=== PATIENT | female | born 1945 | race Caucasian/White ===

== ENCOUNTER 2017-04-26 12:35 | Inpatient (IN) | payer OTHER ==
[2017-04-26] VITALS (12 sets, daily range): BP systolic 62–104; BP diastolic 30–77
[~2017-04-26] VITALS: Ht 167.6 cm; Wt 73.0 kg
--- NOTE | 2017-04-26 12:35 | NUR ---
received report from fire with bp 80/60 and re taken on thier own monitor 76/45.patient awake alert oriented. no distress. no iv access started in the field, as per fire, hard to start because they were moving. bp in er 62/30 on triage. started iv access and fluids while in [place] waiting for a bed. ermd made aware of patients condition.
[2017-04-26] MEDS ORDERED: NACL 0.9% 2,000 ML IV ONE (13:00)
--- NOTE | 2017-04-26 13:00 | NUR ---
laurad assessed patient in bed #11. continue to monitor
--- NOTE | 2017-04-26 13:00 | NUR ---
PT TAKEN TO BED 11 AT THIS TIME.
--- NOTE | 2017-04-26 13:05 | NUR ---
PT sent from a clinic. as per fire, bp 80/60 and re taken in er on thier monitor 76/45.patient awake,alert,oriented. no iv line inserted in the field.hx: seizure,htn. bs field 179 SKIN IS PINK/WARM/DRY; AAOX4 WITH EVEN AND STEADY GAIT; LUNGS CLEAR BL; HR EVEN AND REGULAR; PT DENIES ANY FEVER, CP, SOB, OR COUGH AT THIS TIME; PATIENT STATES PAIN OF 0/10 AT THIS TIME; VSS; PATIENT POSITIONED FOR COMFORT; HOB ELEVATED; BEDRAILS UP X2; BED DOWN. ER MD MADE AWARE OF PT STATUS.
[2017-04-26 13:33] LABS: BASOPHILS % (AUTO) 0.4 % (0.0-2.0); EOSINOPHILS # (AUTO) 0.1 K/uL (0-0.4); EOSINOPHILS % (AUTO) 0.6 % (0.0-4.0); HEMATOCRIT 28.3 % (36-48); HEMOGLOBIN 9.3 g/dL (12.0-16.0); LYMPHOCYTES # (AUTO) 0.4 K/uL (2.5-16.5); LYMPHOCYTES % (AUTO) 4.1 % (20.5-51.1); MEAN CORPUSCULAR HEMOGLOBIN 25 pg (27-31); MEAN CORPUSCULAR HGB CONC 33 g/dL (33-37); MEAN CORPUSCULAR VOLUME 75 fL (80-94); MONOCYTES # (AUTO) 0.5 K/uL (0.8-1.0); MONOCYTES % (AUTO) 4.9 % (1.7-9.3); NEUTROPHILS # (AUTO) 9.2 K/uL (1.8-7.7); PLATELET COUNT (AUTO) 419 K/uL (140-450); RED CELL DISTRIBUTION WIDTH 17.5 % (11.6-13.7); WHITE BLOOD COUNT (AUTO) 10.2 K/uL (4.8-10.8)
[2017-04-26] MEDS ORDERED: QUEPKT PO (13:50)
[2017-04-26] MEDS ORDERED: CARB200T1 PO (13:50)
[2017-04-26] MEDS ORDERED: LISI10TA11 PO (13:50)
[2017-04-26] MEDS ORDERED: WARF-18 PO (13:50)
[2017-04-26] MEDS ORDERED: ATEN50TA8 PO (13:50)
[2017-04-26] MEDS ORDERED: ORE25 PO (13:50)
[2017-04-26 13:52] LABS: PROTHROMBIN TIME 10.9 secs (10.8-13.4)
--- NOTE | 2017-04-26 14:15 | NUR ---
PT TAKEN OFF THE UNIT FOR CT VIA GURNEY BY MACHINE ZIPPER TRIMMER ARISTEO
[2017-04-26 14:20] LABS: ALBUMIN 2.9 g/dL (3.4-5.0); ANION GAP 27.4 (8-16); CARBON DIOXIDE 14.7 mmol/L (21-32); POTASSIUM 4.1 mmol/L (3.5-5.1); TOTAL BILIRUBIN 0.5 mg/dL (0.0-1.0)
[2017-04-26 14:23] LABS: CREATININE 6.3 mg/dL (0.6-1.3)
[2017-04-26] MEDS ORDERED: CALCIUM CHLORIDE 10% 1,000 MG in NACL 0.9% 100 ML IV ONE (14:40)
--- NOTE | 2017-04-26 15:00 | NUR ---
NOTIFIED PT BP 86/46 AT THIS TIME. PT AWAKE, ALERT, AND ORIENTED.
[2017-04-26] MEDS ORDERED: DOPamine 400 MG/D5W PREMIX 250 ML IV ONE ×2 (15:05→23:39)
--- NOTE | 2017-04-26 15:05 | NUR ---
STATRTED PT ON DOPAMINE DRIP AT 5 MCG/KG/MIN.
--- NOTE | 2017-04-26 15:28 | NUR ---
BP85/51, INCREASED DOPAMING DRIP TO 9.99 MCG/KG/MIN
[2017-04-26] MEDS ORDERED: ONDANSETRON 4 MG/2 ML VIAL IM/IVP PRN (15:35)
[2017-04-26] MEDS ORDERED: DOCUSATE SODIUM 100 MG GELCAP PO PRN (15:35)
--- NOTE | 2017-04-26 15:45 | NUR ---
BP 80/46, INCREASED DOPAMINE TO 14.99 MCG/KG/MIN
[2017-04-26] MEDS ORDERED: CALCIUM GLUCONATE 10% 1000 MG/10 ML VIAL IVP ONE (16:00)
[2017-04-26] MEDS ORDERED: CALCIUM GLUCONATE 10% 1,000 MG in NACL 0.9% 100 ML IV SCH (16:00)
--- NOTE | 2017-04-26 16:00 | NUR ---
BP 100/65,HR 72, O2 SAT 96%
--- NOTE | 2017-04-26 16:11 | NUR ---
BP 102/53. HR 78, O2 SAT 100%. PT STATED SHE FEELS BETTER.
[2017-04-26] MEDS: NACL 0.9% 1,000 ML IV SCH ×3 (16:40→19:30)
--- NOTE | 2017-04-26 17:10 | NUR ---
PER CLIENT RELATIONSHIP CONSULTANT FELIZ,HOLD ADM. TO ICU SECONDARY TO EMERGENCY SITUATION IN L&D,VAG. BLEED/LOW BP
--- NOTE | 2017-04-26 17:36 | NUR ---
CHECKED BP 88/47, NOTIFIED PT ON DOPAMINE 15 MCG/KG/MIN. PER , GIVE PT 0.9 NS 1000 MLS, WILL CARRY OUT
--- NOTE | 2017-04-26 17:47 | NUR ---
ADMISSION TO ICU STILL ON HOLD SECONDARY TO EMERGENCY IN ICU PER HYDROGEN PLANT OPERATOR FLEIZ.
--- NOTE | 2017-04-26 17:51 | NUR ---
PT BP 121/72, HR 76. O2 SAT 100%. NOT AT BEDSIDE AT THIS TIME. PER PT, PT WENT HOME , WILL COME BACK.
[2017-04-26] MEDS ORDERED: CALCIUM GLUCONATE 10% 1,000 MG in NACL 0.9% 50 ML IV ONE (18:00)
--- NOTE | 2017-04-26 18:00 | NUR ---
BP 109/54, HR 74, O2 SAT 100%. RR 16. PT STATED SHE FEELS FINE.
[2017-04-26] MEDS ORDERED: SODIUM BICARBONATE 8.4% PFS 50 MEQ/50 ML SYR IVP SCH (18:05)
--- NOTE | 2017-04-26 18:45 | NUR ---
IN TO SEE PT, UPDATED PT'S CONDITION.
--- NOTE | 2017-04-26 19:16 | NUR ---
RECEIVED PT TRANSFERRED FROM ER VIA [facility], OBTAINED REPORT FORM RAJI CEJA AT BEDSIDE, PT IS AAOX4, ABLE TO FOLLOW COMMANDS AND MAKE NEEDS KNOWN. DENIES PAIN, VSS. NO S/S OF SOB/DISTRESS, CLEAR LUNG SOUNDS, ON O2 AT 2L VIA NC, DENIES CHEST PAIN, SR ON INTEGRATION MANAGER, SOFT ABDOMEN WITH HYPOACTIVE BOWEL SOUNDS, ANGEL CATHETER IN PLACE WITH CLEAR YELLOW URINE NOTED, ABLE TO MOVE ALL EXTREMITIES, GENERALIZED WEAKNESS NOTED. PERIPHERAL LINE TO RIGHT FOREARM 20GA, RUNNING NS AT 150ML/HR AND DOPAMINE DRIP AT 15MCG/MIN. SKIN IN INTACT, WARM AND DRY TO TOUCH. EXPLAINED POC TO PT, PT VERBALIZED UNDERSTANDING, HOB ELEVATED 30 DEGREES, SAFETY MEASURE AND SEIZURE PRECAUTION IN PLACE, WILL CONTINUE TO MONITOR.
[2017-04-26] MEDS: CALCIUM CARB/VIT-D 500 MG/200 IU 1 TAB PO SCH (20:00)
--- NOTE | 2017-04-26 20:00 | NUR ---
PT C/O SHARP CHEST PAIN AND BACK PAIN WHEN SLOWLY ADMINISTER SODIUM BICARBONATE IV PUSH, STOPPED ADMINISTER THE MEDICATION IMMEDIATELY, REPORTED TO DR. COLES, WILL GIVE NEW ORDERS.
[2017-04-26 20:11] LABS: FREE T4 (FREE THYROXINE) 0.81 ng/dL (0.76-1.46); MAGNESIUM 2.4 mg/dL (1.8-2.4); PHOSPHORUS 7.1 mg/dL (2.5-4.9); THYROID STIMULATING HORMONE 0.58 uIU/mL (0.34-3.74)
[2017-04-26] MEDS: SODIUM BICARBONATE 8.4% 50 MEQ in NACL 0.9% 1,000 ML IV SCH (20:55)
[2017-04-26 20:58] LABS: ANION GAP 27.6 (8-16); CARBON DIOXIDE 14.6 mmol/L (21-32); POTASSIUM 4.2 mmol/L (3.5-5.1)
[2017-04-26 21:00] LABS: CREATININE 5.2 mg/dL (0.6-1.3)
[2017-04-26 21:17] LABS: APPEARANCE,URINE SL CLOUDY (CLEAR); BILIRUBIN,URINE NEGATIVE (NEGATIVE); BLOOD, URINE NEGATIVE (NEGATIVE); COLOR,URINE YELLOW (YELLOW); LEUKOCYTE ESTERASE ,URINE 1+ (NEGATIVE); NITRITE, URINE NEGATIVE (NEGATIVE); PH,URINE 5.5 (5.0-9.0); UGLUCOSE NEGATIVE (NEGATIVE)
[2017-04-26] MEDS: carBAMazepine 200 MG TAB PO SCH (21:22)
[2017-04-26 21:30] LABS: RBC,URINE 3-10 (FEW) /HPF (0-5); WBC,URINE 16-25 (MOD) /HPF (0-5)
[2017-04-26] MEDS: ZOLPIDEM 5 MG TAB PO PRN (21:42)
[2017-04-27] VITALS (96 sets, daily range): BP systolic 80–146; BP diastolic 39–91
--- NOTE | 2017-04-27 | NUR ---
NO CHANGE OF CONDITION AT THIS TIME, VSS
[2017-04-27] MEDS: DOPamine 400 MG/D5W PREMIX 250 ML IV SCH ×3 (00:14→19:10)
[2017-04-27] MEDS: NACL 0.9% 1,000 ML IV SCH ×4 (00:15→19:58)
--- NOTE | 2017-04-27 02:00 | NUR ---
PT IS ASLEEP IN BED, NO S/S OF DISTRESS, STILL ON DOPAMINE DRIP, VSS.
--- NOTE | 2017-04-27 04:00 | NUR ---
AM CARE REFUSED, STATED," TOO COLD, WILL DO LATER." ANGEL CATHETER CARE PROVIDED.
--- NOTE | 2017-04-27 06:00 | NUR ---
PT IS RESTING IN BED, NO CHANGE OF CONDITION AT THIS TIME, VSS.
[2017-04-27 06:14] LABS: T4 (THYROXINE) 5.3 ug/dL (4.5-12.0)
--- NOTE | 2017-04-27 06:34 | NUR ---
PATIENT HAS BEEN SCREENED AND CATEGORIZED HIGH NUTRITION RISK. PATIENT WILL BE SEEN WITHIN 1-2 DAYS OF ADMISSION. 04/27/17-04/28/17 MIK GARCIA MS, RDN
[2017-04-27 06:37] LABS: ANION GAP 20.8 (8-16); CARBON DIOXIDE 15.2 mmol/L (21-32); CREATININE 2.4 mg/dL (0.6-1.3)
[2017-04-27 06:43] LABS: BASOPHILS % (AUTO) 0.4 % (0.0-2.0); EOSINOPHILS # (AUTO) 0.1 K/uL (0-0.4); EOSINOPHILS % (AUTO) 0.6 % (0.0-4.0); HEMATOCRIT 24.8 % (36-48); HEMOGLOBIN 7.9 g/dL (12.0-16.0); LYMPHOCYTES # (AUTO) 0.5 K/uL (2.5-16.5); MEAN CORPUSCULAR HEMOGLOBIN 24 pg (27-31); MEAN CORPUSCULAR HGB CONC 32 g/dL (33-37); MEAN CORPUSCULAR VOLUME 74 fL (80-94); MONOCYTES # (AUTO) 0.9 K/uL (0.8-1.0); MONOCYTES % (AUTO) 10.5 % (1.7-9.3); NEUTROPHILS # (AUTO) 7.5 K/uL (1.8-7.7); NEUTROPHILS % (AUTO) 83.5 % (42.2-75.2); PLATELET COUNT (AUTO) 449 K/uL (140-450); RED BLOOD CELL COUNT(AUTO) 3.33 MIL/uL (4.20-5.40); RED CELL DISTRIBUTION WIDTH 17.3 % (11.6-13.7)
[2017-04-27] MEDS ORDERED: cefTRIAXone 1,000 MG VIAL ONE (06:43)
--- NOTE | 2017-04-27 07:20 | NUR ---
PT RESTING IN BED COMFORTABLY. A/OX4. IN ROOM AIR 98%. SKIN DRY AND WARM TO TOUCH. NO ACUTE DISTRESS. LUNGS SOUND DIMINISHED ON AUSCULTATION. RIGHT FOREARM IV SITE LEAKING, DCD LEAKING IV LINE. STARTED NEW IV LINE TO LEFT WRIST 20 G. RIGHT FOREARM PERIPHERAL LINE 22G. DOPAMIN RUNNING AT 15 MCG/KG/MIN, SODIUM BICARB RUNNING AT 50 ML/HR. 0.9% NS RUNNING AT 150 ML/HR. ABDOMEN SOFT, ROUND AND NON TENDER. ACTIVE BOWEL SOUND. ANGEL'S CATH IN PLACE. CALL LIGHT WITHIN REACH, BED IN LOW POSITION, LOCKED. WILL CONTINUE TO MONITOR.
[2017-04-27] MEDS: ACETAMINOPHEN 325 MG TAB PO PRN ×2 (07:56→20:00)
--- NOTE | 2017-04-27 07:56 | NUR ---
FEVER OF 100.4 DEGREE F. TAB TYLENOL ADMINISTERED PER ORDER. PT ON CONTINUOUS MONITORING.
--- NOTE | 2017-04-27 08:00 | NUR ---
PT VOMIT OUT TAKEN PILLS ( TYLENOL). COOLING MEASURES APPLIED FOR FEVER MANAGEMENT, EXTRA CLOTHES REMOVED. ON CONTINUOUS MONITORING.
[2017-04-27] MEDS ORDERED: ONDANSETRON 4 MG/2 ML VIAL IVP PRN (08:15)
--- NOTE | 2017-04-27 08:48 | NUR ---
PT RESTING IN BED. TEMPERATURE 100.2. COLD COMPRESS PROVIDING CONTINUOUSLY. NO C/O NAUSEA, NO VOMITING. WILL CONTINUE TO MONITOR.
[2017-04-27] MEDS: CALCIUM CARB/VIT-D 500 MG/200 IU 1 TAB PO SCH ×3 (09:00→17:10)
[2017-04-27] MEDS: carBAMazepine 200 MG TAB PO SCH ×2 (09:02→20:00)
--- NOTE | 2017-04-27 09:15 | NUR ---
DR. LUNA IN TO SEE PT. MADE AWARE ABOUT ELEVATED TEMPERATURE. NO NEW ORDER. WILL FOLLOW UP ON ORDER. PT REFUSED COLD COMPRESS.
--- NOTE | 2017-04-27 09:48 | NUR ---
DR. PETERSEN MADE AWARE ABOUT LOW POTASSIUM 3.0. WILL FOLLOW UP ON ORDER.
[2017-04-27] MEDS ORDERED: POTASSIUM CHLORIDE 10 MEQ TABER PO SCH ×2 (09:51→17:00)
--- NOTE | 2017-04-27 10:50 | NUR ---
PT RESTING IN BED COMFORTABLY. NO CHHANGE IN LOC. AT BEDSIDE. WILL CONTINUE TO MONITOR.
--- NOTE | 2017-04-27 11:06 | NUR ---
04/27/17 RD INITIAL ASSESSMENT COMPLETED PLEASE REFER TO NUTRITION ASSESSMENT UNDER CARE ACTIVITY FOR ESTIMATED NUTRITIONAL NEEDS. RD RECOMMENDATIONS: 1. CONTINUE ON REGULAR DIET TOLERATED. 2. CONSULT RDN PRN. 3. RD WILL F/U 5-7 DAYS; LOW RISK. MIK GARCIA MS, RDN
[2017-04-27] MEDS: SODIUM BICARBONATE 8.4% 50 MEQ in NACL 0.9% 1,000 ML IV SCH (12:10)
--- NOTE | 2017-04-27 12:12 | NUR ---
PT RESTING IN BED COMFORTABLY. NO CHANGE IN LOC WILL CONTINUE TO MONITOR.
[2017-04-27 12:59] LABS: ANION GAP 18.4 (8-16); CARBON DIOXIDE 16.8 mmol/L (21-32); CREATININE 1.6 mg/dL (0.6-1.3); POTASSIUM 3.2 mmol/L (3.5-5.1)
--- NOTE | 2017-04-27 13:18 | NUR ---
DR. CHANEY IN TO SEE PT. WILL FOLLOW UP ON ORDER.
--- NOTE | 2017-04-27 13:54 | NUR ---
DR. COOK AND DR. PAIGE IN TO SEE PT. WILL FOLLOW UP ON ORDER.
--- NOTE | 2017-04-27 14:24 | NUR ---
PT SLEEPING IN BED COMFORTABLY. SR ON MONITOR. NO CHANGE IN LOC. WILL CONTINUE TO MONITOR.
[2017-04-27] MEDS ORDERED: FERRIC GLUCONATE 125 MG in NACL 0.9% 100 ML IV SCH ×2 (16:50→18:00)
--- NOTE | 2017-04-27 18:02 | NUR ---
PT RESTING IN BED COMFORTABLY. NO CHANGE IN LOC. NO ACUTE DISTRESS. AFEBRILE. ON CONTINUOUS DOPAMINE DRIP. WILL CONTINUE TO MONITOR.
[2017-04-27] MEDS ORDERED: CALCIUM ACETATE 667 MG TAB PO ONE (18:05)
--- NOTE | 2017-04-27 19:25 | NUR ---
REPORT GIVEN TO NOC SHIFT RN FOR CONTINUE OF CARE. PT ON STABLE CONDITION.
--- NOTE | 2017-04-27 19:26 | NUR ---
RECEIVED REPORT FORM AM NURSE AT BEDSIDE, PT IS AAOX4, ABLE TO FOLLOW COMMANDS AND MAKE NEEDS KNOWN. C/O HEADACHE 07/06, VSS. NO S/S OF SOB/DISTRESS, CLEAR LUNG SOUNDS, ON RA, DENIES CHEST PAIN, SR ON ADDICTIONS THERAPIST, SOFT ABDOMEN WITH HYPOACTIVE BOWEL SOUNDS, ANGEL CATHETER IN PLACE WITH CLEAR YELLOW URINE NOTED, ABLE TO MOVE ALL EXTREMITIES, GENERALIZED WEAKNESS NOTED. PERIPHERAL LINE TO RIGHT FOREARM 20GA, PATENT AND SL, IV SITE TO LEFT HAND 20GA AND LEFT WRIST 20GA, RUNNING NS AT 150ML/HR, DOPAMINE DRIP AT 6MCG/MIN, AND BICAB AT 50ML/HR. SKIN IN INTACT, WARM AND DRY TO TOUCH. HOB ELEVATED 30 DEGREES, SAFETY MEASURE AND SEIZURE PRECAUTION IN PLACE, WILL CONTINUE TO MONITOR.
[2017-04-27] MEDS: ZOLPIDEM 5 MG TAB PO PRN (19:59)
--- NOTE | 2017-04-27 20:30 | NUR ---
PT HAS A SMALL SOFT YELLOW BOWEL MOVEMENT, ZHENG CARE PROVIDED.
--- NOTE | 2017-04-27 21:20 | NUR ---
PT IS CONFUSED, TRYING TO GET OUT OF THE BED, PULLED OUT THE IV SITE ON LEFT WRIST, MODERATE BLEEDING NOTED. REORIENTED PT, STOPPED THE BLEEDING, MD MADE AWARE, WILL CONTINUE TO MONITOR.
--- NOTE | 2017-04-27 22:30 | NUR ---
PT IS STILL CONFUSED, MADE A PHONE CALL TO HER , SPOKE TO THE ABOUT HER CONDITION, WILL COME TO SEE PT.
--- NOTE | 2017-04-27 23:00 | NUR ---
PT'S CAME TO SEE PT AT BEDSIDE, PT IS MORE CLAM AT THIS TIME.
[2017-04-28] VITALS (57 sets, daily range): BP systolic 87–149; BP diastolic 50–94
--- NOTE | 2017-04-28 | NUR ---
PT IS ASLEEP IN BED, LEFT. NO S/S OF DISTRESS, VSS.
--- NOTE | 2017-04-28 02:00 | NUR ---
PT IS AWAKE, STILL CONFUSED ABOUT THE PLACE, REORIENTED PT, PT CLAM DOWN. VSS. NO S/S OF DISTRESS.
[2017-04-28] MEDS: NACL 0.9% 1,000 ML IV SCH ×2 (02:30→11:32)
--- NOTE | 2017-04-28 04:00 | NUR ---
PT IS RESTING IN BED, NO CHANGE OF CONDITION AT THIS TIME, VSS.
[2017-04-28] MEDS: ACETAMINOPHEN 325 MG TAB PO PRN (06:44)
[2017-04-28 07:15] LABS: BASOPHILS % (AUTO) 0.3 % (0.0-2.0); EOSINOPHILS # (AUTO) 0.1 K/uL (0-0.4); LYMPHOCYTES # (AUTO) 0.5 K/uL (2.5-16.5); LYMPHOCYTES % (AUTO) 8.3 % (20.5-51.1); MEAN CORPUSCULAR HEMOGLOBIN 24 pg (27-31); MEAN CORPUSCULAR HGB CONC 32 g/dL (33-37); MEAN CORPUSCULAR VOLUME 75 fL (80-94); MONOCYTES # (AUTO) 0.7 K/uL (0.8-1.0); NEUTROPHILS # (AUTO) 5.3 K/uL (1.8-7.7); NEUTROPHILS % (AUTO) 80.4 % (42.2-75.2); PLATELET COUNT (AUTO) 379 K/uL (140-450); RED BLOOD CELL COUNT(AUTO) 2.78 MIL/uL (4.20-5.40); RED CELL DISTRIBUTION WIDTH 17.3 % (11.6-13.7)
--- NOTE | 2017-04-28 07:20 | NUR ---
REPORT GIVEN TO RAJI SHAH AT BEDSIDE FOR CONTINUE OF CARE, PT IS IN STABLE CONDITION, VSS.
[2017-04-28 07:21] LABS: CARBON DIOXIDE 19.8 mmol/L (21-32); CREATININE 0.8 mg/dL (0.6-1.3)
[2017-04-28 07:24] LABS: POTASSIUM 2.8 mmol/L (3.5-5.1)
--- NOTE | 2017-04-28 07:25 | NUR ---
PT RESTING IN BED. A/O X4. NO ACUTE DISTRESS NOTED. SR ON MONITOR. ON O2 2 LTR/MIN. SKIN DRY AND WARM TO TOUCH. PUPILS REACTIVE TO LIGHT. LUNGS SOUND CLEAR ON AUSCULTATION. PERIPHERAL LINE ON RIGHT ARM. RIGHT FOREARM AND RIGHT HAND 22 G, LEFT FOREARM 20G. ON DOPAMIN DRIP 5 MCG/KG.MIN AND NS AT 150 ML/HR. IV SITE INTACT. ABDOMEN SOFT, ROUND AND NON-TENDER. ACTIVE BOWEL SOUND ON ALL FOUR QUADRANTS. ANGEL'S CATH IN PLACE DRAINING YELLOW URINE VIA GRAVITY. CALL LIGHT WITHIN REACH, BED IN LOW POSITION, LOCKED. WILL CONTINUE TO MONITOR.
[2017-04-28 07:26] LABS: MAGNESIUM 1.1 mg/dL (1.8-2.4); PHOSPHORUS 2.4 mg/dL (2.5-4.9)
[2017-04-28 07:27] LABS: HEMATOCRIT 20.9 % (36-48); HEMOGLOBIN 6.7 g/dL (12.0-16.0); WHITE BLOOD COUNT (AUTO) 6.6 K/uL (4.8-10.8)
[2017-04-28] MEDS ORDERED: FERROUS SULFATE 325 MG TABEC PO SCH ×2 (08:00→09:00)
[2017-04-28] MEDS ORDERED: POTASSIUM CHLORIDE 40 MEQ, LIDOCAINE 1% 25 MG in NACL 0.9% 250 ML IV SCH (08:30)
[2017-04-28] MEDS: LACTOBACILLUS RHAMNOSUS GG 1 EACH CAP PO SCH (08:35)
[2017-04-28] MEDS: CALCIUM CARB/VIT-D 500 MG/200 IU 1 TAB PO SCH ×3 (08:35→17:36)
[2017-04-28] MEDS: carBAMazepine 200 MG TAB PO SCH ×2 (08:35→20:23)
[2017-04-28] MEDS ORDERED: FERRIC GLUCONATE 125 MG in NACL 0.9% 100 ML IV SCH (09:00)
[2017-04-28] MEDS ORDERED: ASCORBIC ACID 500 MG TAB PO SCH (09:00)
[2017-04-28] MEDS: FERROUS SULFATE 325 MG TABEC PO SCH (09:01)
[2017-04-28] MEDS: ATORVASTATIN 20 MG TAB PO SCH (09:20)
[2017-04-28] MEDS: SODIUM PHOS / POTASSIUM PHOS 1 PKT PDR PO SCH ×3 (09:23→17:36)
--- NOTE | 2017-04-28 10:08 | NUR ---
PT RESTING IN BED COMFORTABLY. NO CHANGE IN LOC. AT BED SIDE. WILL CONTINUE TO MONITOR.
[2017-04-28] MEDS: HYDROcodone/APAP 7.5/325 MG 1 TAB PO PRN ×2 (10:51→20:22)
[2017-04-28] MEDS ORDERED: MAG SULF 2000 MG/WATER PREMIX 50 ML IV SCH (12:30)
--- NOTE | 2017-04-28 12:45 | NUR ---
PT RESTING IN BED COMFORTABLY. MEDICATION DONE. TOLERATED WELL. NO ACUTE DISTRESS NOTED. NO CHANGE IN LOC. CALL LIGHT WITHIN REACH, BED IN LOW POSITION, LOCKED. WILL CONTINUE TO MONITOR.
--- NOTE | 2017-04-28 13:50 | NUR ---
DR. CHANEY IN TO SEE PT WILL FOLOW UP ON ORDER.
--- NOTE | 2017-04-28 14:25 | NUR ---
DR. LUNA IN TO SEE PT. NO NEW ORDER AT THIS TIME. WILL FOLLOW UP ON ORDER.
--- NOTE | 2017-04-28 14:46 | NUR ---
DR. COOK AND DR. PAIGE IN TO SEE PT. WILL FOLLOW UP ON ORDER.
--- NOTE | 2017-04-28 15:30 | NUR ---
PT RESTING IN BED COMFORTABLY. NO CHANGE IN LOC. NO ACUTE DISTRESS. BP 122/61. AFEBRILE. KEPT PT CLEAN AND DRY. CALL LIGHT WITHIN REACH. BED IN LOW POSITION. WILL CONTINUE TO MONITOR.
[2017-04-28 16:11] LABS: ANION GAP 15.8 (8-16); CARBON DIOXIDE 18.1 mmol/L (21-32); CREATININE 0.9 mg/dL (0.6-1.3); POTASSIUM 3.9 mmol/L (3.5-5.1)
[2017-04-28 16:14] LABS: MAGNESIUM 1.8 mg/dL (1.8-2.4); PHOSPHORUS 2.8 mg/dL (2.5-4.9)
[2017-04-28] MEDS: CLINDAMYCIN 600 MG in DEXTROSE 5% 50 ML IV SCH ×2 (17:36→23:36)
--- NOTE | 2017-04-28 18:48 | NUR ---
PT RESTING IN BED COMFORTABLY. NO ACUTE DISTRESS. NO CHANGE IN LOC. BP 157/80. CALL LIGHT WITHIN REACH. BED IN LOW POSITION, LOCKED. AT BED SIDE. WILL CONTINUE TO MONITOR.
--- NOTE | 2017-04-28 19:15 | NUR ---
PT TRANSFERRED TO TELE BED 105A ON STABLE CONDITION.
--- NOTE | 2017-04-28 19:25 | NUR ---
RECEIVED PATIENT FROM ICU. PATIENT RESTING IN BED, AWAKE ALERT ORIENTED X3, NO S/S OF DISTRESS NOTED, RESPIRATION EVEN AND UNLABORED, ON 2L NC. ANGEL CATHETER IN PLACE, DRAINING CLOUDY DARK YELLOW URINE BY GRAVITY. IV ON RT HAND 22G INFUSING NS AT 70ML/HR. PLAN OF CARE DISCUSSED, PATIENT VERBALIZED UNDERSTANDING. CALL LIGHT WITHIN REACH, SAFETY MEASURE ENSURED, WILL CONTINUE TO MONITOR.
--- NOTE | 2017-04-28 20:30 | NUR ---
PATIENT STATED HEADACHE 10/06, PAIN MEDICATION ADMINISTERED ORDERED, CALL LIGHT WITHIN REACH, SAFETY MEASURE ENSURED, WILL CONTINUE TO MONITOR.
--- NOTE | 2017-04-28 21:50 | NUR ---
PATIENT IS SLEEPING IN BED, NO S/S OF DISTRESS NOTED, RESPIRATION EVEN AND UNLABORED, CALL LIGHT WITHIN REACH, SAFETY MEASURE ENSURED, WILL CONTINUE TO MONITOR.
--- NOTE | 2017-04-28 23:50 | NUR ---
NO CHANGE IN CONDITION, PATIENT WAS SLEEPING, BUT EASY TO AROUSE. NO S/S OF DISTRESS NOTED, RESPIRATION EVEN AND UNLABORED, VITAL SIGNS STABLE, CALL LIGHT WITHIN REACH, SAFETY MEASURE ENSURED, WILL CONTINUE TO MONITOR.
[2017-04-29] VITALS: BP 124/68
[2017-04-29] MEDS: NACL 0.9% 1,000 ML IV SCH ×3 (01:33→20:53)
--- NOTE | 2017-04-29 01:56 | NUR ---
PATIENT IS SLEEPING IN BED, NO S/S OF DISTRESS NOTED, RESPIRATION EVEN AND UNLABORED, CALL LIGHT WITHIN REACH, SAFETY MEASURE ENSURED, WILL CONTINUE TO MONITOR.
--- NOTE | 2017-04-29 03:06 | NUR ---
NO CHANGE IN CONDITION, PATIENT IS SLEEPING, RESPIRATION EVEN AND UNLABORED, NO S/S OF DISTRESS NOTED, CALL LIGHT WITHIN REACH, SAFETY MEASURE ENSURED, WILL CONTINUE TO MONITOR.
[2017-04-29 04:00] VITALS: BP 128/81
--- NOTE | 2017-04-29 05:23 | NUR ---
PATIENT IS SLEEPING, RESPIRATION EVEN AND UNLABORED, ROCEPHIN STARTED, PATIENT TOLERATED WELL.
[2017-04-29] MEDS: CLINDAMYCIN 600 MG in DEXTROSE 5% 50 ML IV SCH ×4 (06:00→23:43)
--- NOTE | 2017-04-29 06:08 | NUR ---
IV ON LT HAND IS NOT PATENT, IV CATHETER TAKEN OUT, TIP INTACT, NO ACTIVE BLEEDING AT THE IV SITE. WILL CONTINUE TO MONITOR.
--- NOTE | 2017-04-29 06:09 | NUR ---
CLEOCIN STARTED, PATIENT TOLERATED WELL.
[2017-04-29 07:29] LABS: BASOPHILS % (AUTO) 0.6 % (0.0-2.0); EOSINOPHILS # (AUTO) 0.1 K/uL (0-0.4); EOSINOPHILS % (AUTO) 1.9 % (0.0-4.0); HEMATOCRIT 23.2 % (36-48); HEMOGLOBIN 7.5 g/dL (12.0-16.0); LYMPHOCYTES # (AUTO) 0.6 K/uL (2.5-16.5); LYMPHOCYTES % (AUTO) 8.4 % (20.5-51.1); MEAN CORPUSCULAR HEMOGLOBIN 24 pg (27-31); MEAN CORPUSCULAR HGB CONC 32 g/dL (33-37); MEAN CORPUSCULAR VOLUME 75 fL (80-94); MONOCYTES # (AUTO) 0.7 K/uL (0.8-1.0); MONOCYTES % (AUTO) 10.8 % (1.7-9.3); NEUTROPHILS # (AUTO) 5.5 K/uL (1.8-7.7); NEUTROPHILS % (AUTO) 78.3 % (42.2-75.2); PLATELET COUNT (AUTO) 398 K/uL (140-450); RED BLOOD CELL COUNT(AUTO) 3.09 MIL/uL (4.20-5.40); RED CELL DISTRIBUTION WIDTH 17.3 % (11.6-13.7); WHITE BLOOD COUNT (AUTO) 6.9 K/uL (4.8-10.8)
--- NOTE | 2017-04-29 07:29 | NUR ---
ENDORSED PLAN OF CARE TO DAY SHIFT NURSE, PATIENT IS RESTING IN BED, IN STABLE CONDITION.
--- NOTE | 2017-04-29 08:00 | NUR ---
RECEIVED REPORT FROM LISSETH AT BEDSIDE. PATIENT IS ALERT AWAKE ORIENTED X4, NOT IN ANY DISTRESS NOTED. WITH IVF ON GOING AND INFUSING WELL. ANGEL CATHETER IN PLACE. ON MONITOR SHOWS SR. DENIES PAIN AT THIS TIME. NEEDS ATTENDED, WILL CONTINUE TO MONITOR.
[2017-04-29 08:01] VITALS: BP 143/82
[2017-04-29 08:21] LABS: ANION GAP 17.1 (8-16); CARBON DIOXIDE 17.2 mmol/L (21-32); CREATININE 0.8 mg/dL (0.6-1.3); POTASSIUM 3.3 mmol/L (3.5-5.1)
[2017-04-29 08:27] LABS: MAGNESIUM 1.2 mg/dL (1.8-2.4); PHOSPHORUS 3.1 mg/dL (2.5-4.9)
[2017-04-29] MEDS: CALCIUM CARB/VIT-D 500 MG/200 IU 1 TAB PO SCH ×2 (08:47→12:31)
[2017-04-29] MEDS: carBAMazepine 200 MG TAB PO SCH ×2 (08:48→20:53)
[2017-04-29] MEDS: ASCORBIC ACID 500 MG TAB PO SCH (08:48)
[2017-04-29] MEDS: ATORVASTATIN 20 MG TAB PO SCH (08:48)
[2017-04-29] MEDS: SODIUM PHOS / POTASSIUM PHOS 1 PKT PDR PO SCH ×3 (08:48→17:04)
[2017-04-29] MEDS: FERROUS SULFATE 325 MG TABEC PO SCH (08:49)
[2017-04-29] MEDS: LACTOBACILLUS RHAMNOSUS GG 1 EACH CAP PO SCH (08:49)
[2017-04-29] MEDS ORDERED: MAG SULF 2000 MG/WATER PREMIX 50 ML IV SCH (09:00)
[2017-04-29] MEDS ORDERED: POTASSIUM CHLORIDE 20% 40 MEQ/15 ML UDC PO SCH (09:00)
--- NOTE | 2017-04-29 09:00 | NUR ---
DUE MEDICATION GIVEN AND TOLERATED WELL, REFUSED TO EAT BREAKFAST WAITING FOR THE TO BRING FOOD. WILL CONTINUE TO MONITOR.
[2017-04-29] MEDS: HYDROcodone/APAP 7.5/325 MG 1 TAB PO PRN (11:08)
--- NOTE | 2017-04-29 11:30 | NUR ---
PATIENT ABLE TO EAT SANDWICH AND TOLERATED WELL, DISCUSSED PLAN OF CARE AND VERBALIZED UNDERSTANDING. WEAN O2, CHECK PULSE OX ON ROOM AIR 94%, NO SOB NOTED. ENCOURAGED TO AMBULATE, SHE SAID SHE WILL TRY LATER TODAY.
[2017-04-29 11:50] VITALS: BP_DIAS 139
[2017-04-29] MEDS ORDERED: MAG SULF 2000 MG/WATER PREMIX 100 ML IV SCH (14:00)
[2017-04-29] MEDS ORDERED: POTASSIUM CHLORIDE 10 MEQ TABER PO SCH (14:00)
--- NOTE | 2017-04-29 14:58 | NUR ---
RECEIVED HANDOFF REPORT FROM CHARGE NURSE TAMARA. PATIENT A&OX4. PATIENT DENIES PAIN. IV SITE PATENT AND INTACT. NO SIGNS OR SYMPTOMS OF ACUTE DISTRESS NOTED. CALL LIGHT WITHIN REACH. WILL CONTINUE TO MONITOR.
--- NOTE | 2017-04-29 15:00 | NUR ---
REPORT GIVEN TO RAJI GARCIA FOR CONTINUITY OF CARE. PATIENT IN STABLE CONDITION.
[2017-04-29 16:00] VITALS: BP 129/84
--- NOTE | 2017-04-29 16:26 | NUR ---
ANGEL CATHETER DISCONTINUED. PATIENT TOLERATED WELL. NO SIGNS OR SYMPTOMS OF ACUTE DISTRESS NOTED. AT BEDSIDE. SAFETY MEASURES ENSURED. CALL LIGHT WITHIN REACH. WILL CONTINUE TO MONITOR.
[2017-04-29] MEDS: ACETAMINOPHEN 325 MG TAB PO PRN (17:04)
--- NOTE | 2017-04-29 19:42 | NUR ---
PATIENT UP TO GO TO THE RESTROOM, WITH ASSISTANCE. PATIENT TOLERATED WELL. NO SIGNS OR SYMPTOMS OF ACUTE DISTRESS NOTED. SAFETY MEASURES ENSURED. WILL CONTINUE TO MONITOR.
[2017-04-29 20:00] VITALS: BP 140/82
--- NOTE | 2017-04-29 20:55 | NUR ---
PM MEDS GIVEN WITH EDUCATION. PATIENT VERBALIZED UNDERSTANDING. NO SIGNS OR SYMPTOMS OF ACUTE DISTRESS NOTED. CALL LIGHT WITHIN REACH. WILL CONTINUE TO MONITOR.
[2017-04-29] MEDS ORDERED: ZOLPIDEM 5 MG TAB PO PRN (21:50)
[2017-04-30] VITALS: BP 134/85
--- NOTE | 2017-04-30 02:20 | NUR ---
PATIENT UP FOR BATHROOM. SAFETY MEASURES ENSURED. WILL CONTINUE TO MONITOR.
[2017-04-30 04:00] VITALS: BP 135/84
[2017-04-30] MEDS: CLINDAMYCIN 600 MG in DEXTROSE 5% 50 ML IV SCH ×2 (05:00→12:00)
--- NOTE | 2017-04-30 07:22 | NUR ---
ENDORSED PLAN OF CARE TO AM RAJI HESS. PATIENT IN STABLE CONDITION.
[2017-04-30 07:26] LABS: BASOPHILS # (AUTO) 0.1 K/uL (0.00-0.22); BASOPHILS % (AUTO) 0.7 % (0.0-2.0); EOSINOPHILS # (AUTO) 0.1 K/uL (0-0.4); EOSINOPHILS % (AUTO) 1.1 % (0.0-4.0); HEMATOCRIT 22.7 % (36-48); HEMOGLOBIN 7.2 g/dL (12.0-16.0); LYMPHOCYTES # (AUTO) 0.7 K/uL (2.5-16.5); LYMPHOCYTES % (AUTO) 10.1 % (20.5-51.1); MEAN CORPUSCULAR HEMOGLOBIN 24 pg (27-31); MEAN CORPUSCULAR HGB CONC 32 g/dL (33-37); MEAN CORPUSCULAR VOLUME 76 fL (80-94); MONOCYTES # (AUTO) 0.4 K/uL (0.8-1.0); MONOCYTES % (AUTO) 5.8 % (1.7-9.3); NEUTROPHILS # (AUTO) 6.1 K/uL (1.8-7.7); NEUTROPHILS % (AUTO) 82.3 % (42.2-75.2); PLATELET COUNT (AUTO) 370 K/uL (140-450); RED BLOOD CELL COUNT(AUTO) 2.98 MIL/uL (4.20-5.40); RED CELL DISTRIBUTION WIDTH 17.5 % (11.6-13.7); WHITE BLOOD COUNT (AUTO) 7.4 K/uL (4.8-10.8)
--- NOTE | 2017-04-30 07:30 | NUR ---
RECEIVED PT ON BED AAOX4. NO SOB NOTED. NO C/O PAIN AT THIS TIME. IV TO RT HAND PATENT AND INTACT. CHEST CLEAR. ABDOMEN SOFT, BOWEL SOUNDS PRESENT. INSTRUCTED PT TO CALL FOR ASSISTANCE, CALL LIGHT WITHIN REACH, PT VERBALIZED UNDERSTANDING
[2017-04-30 07:47] LABS: ANION GAP 14.3 (8-16); CARBON DIOXIDE 21.7 mmol/L (21-32); CREATININE 0.8 mg/dL (0.6-1.3)
[2017-04-30 08:00] VITALS: BP 127/90
[2017-04-30 08:00] LABS: MAGNESIUM 1.2 mg/dL (1.8-2.4); PHOSPHORUS 3.3 mg/dL (2.5-4.9)
[2017-04-30] MEDS: ATORVASTATIN 20 MG TAB PO SCH (09:13)
[2017-04-30] MEDS: carBAMazepine 200 MG TAB PO SCH (09:14)
[2017-04-30] MEDS: LACTOBACILLUS RHAMNOSUS GG 1 EACH CAP PO SCH (09:15)
[2017-04-30] MEDS: ASCORBIC ACID 500 MG TAB PO SCH (09:15)
[2017-04-30] MEDS: FERROUS SULFATE 325 MG TABEC PO SCH (09:15)
[2017-04-30] MEDS: SODIUM PHOS / POTASSIUM PHOS 1 PKT PDR PO SCH ×2 (09:22→12:00)
[2017-04-30] MEDS ORDERED: CALCIUM CARB/VIT-D 500 MG/200 IU 1 TAB PO SCH (09:22)
[2017-04-30] MEDS ORDERED: POTASSIUM CHLORIDE 20% 40 MEQ/15 ML UDC PO SCH (09:24)
[2017-04-30] MEDS ORDERED: MAG SULF 2000 MG/WATER PREMIX 100 ML IV ONE (09:25)
[2017-04-30] MEDS ORDERED: MAG SULF 2000 MG/WATER PREMIX 100 ML IV SCH (09:30)
--- NOTE | 2017-04-30 09:30 | NUR ---
PHYSICAL THERAPY ON GOING AT THE BEDSIDE
--- NOTE | 2017-04-30 10:25 | NUR ---
1st bag of Mag rider started.
--- NOTE | 2017-04-30 12:30 | NUR ---
2nd bag of mag rider followed.
--- NOTE | 2017-04-30 13:37 | NUR ---
INITIAL REVIEW FAXED TO [facility] AT [phone]
--- NOTE | 2017-04-30 14:30 | NUR ---
2 bags of mag rider completed. discharge instructions given to pt which verbalized full understanding of the instructions and the need to follow up with own PCP within 7 days. arm bands and iv removed, cannula tip intact.
--- NOTE | 2017-04-30 14:45 | NUR ---
PT WHEELED OUT TO THE PARKING LOT IN STABLE CONDITION. NO SOB NOTED. NO COMPLAINTS MADE. PT IS D/C HOME WITH .
[2017-05-01 06:15] LABS: FOLIC ACID 5.7 ng/mL (>3.0)
[2017-05-01] MEDS ORDERED: CALCIUM CARB/VIT-D 500 MG/200 IU 1 TAB PO SCH (09:00)
== END 2017-04-30 14:45 | disposition home or self-care (01) | DRG 871 ==
LOC: MED 12:35 → MIC 15:43 → MTU 04-28 19:15
PROVIDERS: ADMIT Family Medicine Sports Medicine; ATTEND Family Medicine Sports Medicine
DX: A41.9 Sepsis, unspecified organism (principal); J69.0 Pneumonitis due to inhalation of food and vomit; N17.0 Acute kidney failure with tubular necrosis; R65.21 Severe sepsis with septic shock; E87.0 Hyperosmolality and hypernatremia; E44.0 Moderate protein-calorie malnutrition; G40.909 Epilepsy, unspecified, not intractable, without status epilepticus; E83.51 Hypocalcemia; I10 Essential (primary) hypertension; D64.9 Anemia, unspecified; E78.5 Hyperlipidemia, unspecified; E87.6 Hypokalemia; E86.0 Dehydration; D50.9 Iron deficiency anemia, unspecified; E83.39 Other disorders of phosphorus metabolism; E66.3 Overweight; E83.42 Hypomagnesemia; E87.8 Other disorders of electrolyte and fluid balance, not elsewhere classified; Z90.710 Acquired absence of both cervix and uterus; Z68.26 Body mass index [BMI] 26.0-26.9, adult
CPT/HCPCS: 36415; 36600; 51702; 71010; 80048; 80053; 81001; 82607; 82728; 82746; 82803; 83036; 83540; 83605; 83735; 83880; 84100; 84436; 84439; 84443; 84479; 84484; 85025; 85045; 85610; 85730; 87040; 87045; 87081; 87086; 93005; 99291; J0610; J0696; J1265; J2001; J2405; J2916; J3475; J3480; J3490; J7030; J7060; Q0092